=== PATIENT | male | born 1955 | race Caucasian/White ===

== ENCOUNTER → 2017-12-29 07:11 | Outpatient (CLI) | payer OTHER, SELFPAY ==
[2017-12-29 08:15] LABS: Hemoglobin A1C% w Est Avg Glu 6.4 % (4.0-6.0)
[2017-12-29 09:00] LABS: Alanine Aminotransferase 23 IU/L (21-72); Albumin 4.6 g/dL (3.5-5.0); Albumin Globulin Ratio 1.7 (1.0-2.8); Alkaline Phosphatase 39 U/L (38-126); Aspartate Aminotransferase 18 IU/L (17-59); BUN Creatinine Ratio 25.6 (6-22); Bilirubin Total 0.8 mg/dL (0.2-1.3); Blood Urea Nitrogen 23 mg/dL (9-20); Calcium 10.3 mg/dL (8.4-10.2); Carbon Dioxide 28 mmol/L (22-32); Chloride 103 mmol/L (98-107); Cholesterol 158 mg/dL (140-199); Estimated Glomerular Filt Rate > 60.0 mL/min (>60); Globulin 2.7 g/dL (1.7-4.1); Glucose 140 mg/dL (80-110); HDL Cholesterol 59 mg/dL (40-60); HEMOLYSIS < 15 (0-50); LDL Cholesterol Calculated 76 mg/dL (<100); Potassium 5.3 mmol/L (3.4-5.1); Sodium 143 mmol/L (137-145); Total Protein 7.3 g/dL (6.3-8.2); Triglycerides 116 mg/dL (35-150)
== END ==
PROVIDERS: PCP Internal Medicine; Visit Provider Internal Medicine
DX: E78.2 Mixed hyperlipidemia (principal); E11.9 Type 2 diabetes mellitus without complications
CPT/HCPCS: 36415; 80053; 80061; 83036

== ENCOUNTER → 2018-04-08 10:36 | Outpatient (CLI) | payer OTHER, SELFPAY ==
[2018-04-08 10:57] LABS: Hemoglobin A1C% w Est Avg Glu 7.8 % (4.0-6.0)
[2018-04-08 11:05] LABS: BUN Creatinine Ratio 18.9 (6-22); Blood Urea Nitrogen 17 mg/dL (9-20); Calcium 9.6 mg/dL (8.4-10.2); Carbon Dioxide 26 mmol/L (22-32); Chloride 103 mmol/L (98-107); Estimated Glomerular Filt Rate > 60.0 mL/min (>60); Glucose 192 mg/dL (80-110); HEMOLYSIS < 15 (0-50); Potassium 4.4 mmol/L (3.4-5.1); Sodium 141 mmol/L (137-145)
== END ==
PROVIDERS: PCP Internal Medicine; Visit Provider Internal Medicine
DX: E11.65 Type 2 diabetes mellitus with hyperglycemia (principal); E78.2 Mixed hyperlipidemia
CPT/HCPCS: 36415; 80048; 83036

== ENCOUNTER → 2018-07-01 07:38 | Outpatient (CLI) | payer OTHER, SELFPAY ==
[2018-07-01 08:26] LABS: Hemoglobin A1C% w Est Avg Glu 6.9 % (4.0-6.0)
[2018-07-01 08:33] LABS: Alanine Aminotransferase 38 IU/L (21-72); Albumin 4.4 g/dL (3.5-5.0); Albumin Globulin Ratio 1.5 (1.0-2.8); Alkaline Phosphatase 38 U/L (38-126); Aspartate Aminotransferase 23 IU/L (17-59); Bilirubin Total 0.8 mg/dL (0.2-1.3); Blood Urea Nitrogen 23 mg/dL (9-20); Calcium 9.7 mg/dL (8.4-10.2); Carbon Dioxide 23 mmol/L (22-32); Chloride 104 mmol/L (98-107); Cholesterol 137 mg/dL (140-199); Estimated Glomerular Filt Rate > 60.0 mL/min (>60); Globulin 2.9 g/dL (1.7-4.1); Glucose 141 mg/dL (80-110); HDL Cholesterol 54 mg/dL (40-60); HEMOLYSIS < 15 (0-50); LDL Cholesterol Calculated 64 mg/dL (<100); Potassium 4.4 mmol/L (3.4-5.1); Sodium 138 mmol/L (137-145); Total Protein 7.3 g/dL (6.3-8.2); Triglycerides 96 mg/dL (35-150)
== END ==
PROVIDERS: PCP Internal Medicine; Visit Provider Internal Medicine
DX: E11.65 Type 2 diabetes mellitus with hyperglycemia (principal); E29.1 Testicular hypofunction; E78.2 Mixed hyperlipidemia
CPT/HCPCS: 80053; 80061; 83036

== ENCOUNTER → 2018-10-06 06:46 | Outpatient (CLI) | payer OTHER, SELFPAY ==
[2018-10-06 08:11] LABS: Alanine Aminotransferase 19 IU/L (21-72); Albumin 4.5 g/dL (3.5-5.0); Albumin Globulin Ratio 1.6 (1.0-2.8); Alkaline Phosphatase 41 U/L (38-126); Aspartate Aminotransferase 21 IU/L (17-59); BUN Creatinine Ratio 25.6 (6-22); Bilirubin Total 0.8 mg/dL (0.2-1.3); Blood Urea Nitrogen 23 mg/dL (9-20); Calcium 9.5 mg/dL (8.4-10.2); Carbon Dioxide 25 mmol/L (22-32); Chloride 102 mmol/L (98-107); Estimated Glomerular Filt Rate > 60.0 mL/min (>60); Globulin 2.9 g/dL (1.7-4.1); Glucose 140 mg/dL (80-110); HEMOLYSIS < 15 (0-50); Potassium 4.6 mmol/L (3.4-5.1); Sodium 137 mmol/L (137-145); Total Protein 7.4 g/dL (6.3-8.2)
[2018-10-06 08:13] LABS: Hemoglobin A1C% w Est Avg Glu 6.6 % (4.0-6.0)
== END ==
PROVIDERS: PCP Internal Medicine; Visit Provider Internal Medicine
DX: E11.65 Type 2 diabetes mellitus with hyperglycemia (principal)
CPT/HCPCS: 36415; 80053; 83036

== ENCOUNTER → 2019-03-29 07:16 | Outpatient (CLI) | payer OTHER, SELFPAY ==
[2019-03-29 09:25] LABS: Alanine Aminotransferase 20 IU/L (<50); Albumin 4.6 g/dL (3.5-5.0); Albumin Globulin Ratio 1.8 (1.0-2.8); Alkaline Phosphatase 46 U/L (38-126); Aspartate Aminotransferase 19 IU/L (17-59); BUN Creatinine Ratio 24.4 (6-22); Blood Urea Nitrogen 22 mg/dL (9-20); Calcium 9.9 mg/dL (8.4-10.2); Carbon Dioxide 22 mmol/L (22-32); Chloride 105 mmol/L (98-107); Cholesterol 171 mg/dL (140-199); Estimated Glomerular Filt Rate > 60.0 mL/min (>60); Globulin 2.6 g/dL (1.7-4.1); Glucose 163 mg/dL (80-110); HDL Cholesterol 48 mg/dL (40-60); HEMOLYSIS < 15 (0-50); LDL Cholesterol Calculated 78 mg/dL (<100); Potassium 4.6 mmol/L (3.4-5.1); Sodium 138 mmol/L (137-145); Total Protein 7.2 g/dL (6.3-8.2); Triglycerides 223 mg/dL (35-150)
[2019-03-29 09:46] LABS: Prostate Specific Antigen Scrn 1.95 ng/mL (0.1-4.0)
== END ==
PROVIDERS: PCP Internal Medicine; Visit Provider Internal Medicine
DX: Z12.5 Encounter for screening for malignant neoplasm of prostate (principal); E11.9 Type 2 diabetes mellitus without complications; E78.2 Mixed hyperlipidemia
CPT/HCPCS: 36415; 80053; 80061; 83036; G0103

== ENCOUNTER → 2019-10-18 07:58 | Outpatient (CLI) | payer OTHER, SELFPAY ==
[2019-10-18 09:47] LABS: Hemoglobin A1C% w Est Avg Glu 8.2 % (4.0-6.0)
[2019-10-18 10:05] LABS: Alanine Aminotransferase 31 IU/L (<50); Albumin 4.4 g/dL (3.5-5.0); Albumin Globulin Ratio 1.7 (1.0-2.8); Alkaline Phosphatase 39 U/L (38-126); Aspartate Aminotransferase 25 IU/L (17-59); BUN Creatinine Ratio 22.5 (6-22); Bilirubin Total 0.8 mg/dL (0.2-1.3); Blood Urea Nitrogen 20 mg/dL (9-20); Carbon Dioxide 24 mmol/L (22-32); Chloride 105 mmol/L (98-107); Estimated Glomerular Filt Rate > 60.0 mL/min (>60); Globulin 2.6 g/dL (1.7-4.1); Glucose 175 mg/dL (80-110); HEMOLYSIS < 15 (0-50); Sodium 138 mmol/L (137-145)
== END ==
PROVIDERS: PCP Internal Medicine; Referring Provider Internal Medicine; Visit Provider Internal Medicine
DX: E11.9 Type 2 diabetes mellitus without complications (principal); E78.2 Mixed hyperlipidemia
CPT/HCPCS: 36415; 80053; 83036

== ENCOUNTER → 2020-01-23 08:06 | Outpatient (CLI) | payer OTHER, SELFPAY ==
[2020-01-23 10:05] LABS: Blood Urea Nitrogen 16 mg/dL (9-20); Calcium 9.3 mg/dL (8.4-10.2); Carbon Dioxide 23 mmol/L (22-32); Chloride 106 mmol/L (98-107); Estimated Glomerular Filt Rate > 60.0 mL/min (>60); Glucose 124 mg/dL (80-110); HEMOLYSIS < 15 (0-50); Potassium 4.2 mmol/L (3.4-5.1); Sodium 138 mmol/L (137-145)
[2020-01-23 10:53] LABS: Hemoglobin A1C% w Est Avg Glu 7.2 % (4.0-6.0)
== END ==
PROVIDERS: PCP Internal Medicine; Referring Provider Internal Medicine; Visit Provider Internal Medicine
DX: E11.65 Type 2 diabetes mellitus with hyperglycemia (principal)
CPT/HCPCS: 36415; 80048; 83036

== ENCOUNTER → 2020-06-14 10:27 | Outpatient (CLI) | payer OTHER, SELFPAY ==
[2020-06-14 13:07] LABS: Alanine Aminotransferase 32 IU/L (<50); Albumin 4.3 g/dL (3.5-5.0); Albumin Globulin Ratio 1.7 (1.0-2.8); Alkaline Phosphatase 40 U/L (38-126); Aspartate Aminotransferase 31 IU/L (17-59); BUN Creatinine Ratio 21.6 (6-22); Bilirubin Total 0.8 mg/dL (0.2-1.3); Blood Urea Nitrogen 19 mg/dL (9-20); Calcium 9.8 mg/dL (8.4-10.2); Carbon Dioxide 25 mmol/L (22-32); Chloride 104 mmol/L (98-107); Cholesterol 150 mg/dL (140-199); Estimated Glomerular Filt Rate > 60.0 mL/min (>60); Globulin 2.6 g/dL (1.7-4.1); Glucose 130 mg/dL (80-110); HDL Cholesterol 56 mg/dL (40-60); HEMOLYSIS < 15 (0-50); LDL Cholesterol Calculated 64 mg/dL (<100); Potassium 4.7 mmol/L (3.4-5.1); Sodium 136 mmol/L (137-145); Total Protein 6.9 g/dL (6.3-8.2); Triglycerides 150 mg/dL (35-150)
[2020-06-14 13:25] LABS: Hemoglobin A1C% w Est Avg Glu 7.4 % (4.0-6.0)
[2020-06-14 13:36] LABS: Prostate Specific Antigen Scrn 1.96 ng/mL (0.1-4.0)
== END ==
PROVIDERS: PCP Family Medicine; Referring Provider Internal Medicine; Visit Provider Internal Medicine
DX: E11.65 Type 2 diabetes mellitus with hyperglycemia (principal); Z12.5 Encounter for screening for malignant neoplasm of prostate; E78.2 Mixed hyperlipidemia
CPT/HCPCS: 36415; 80053; 80061; 83036; G0103

== ENCOUNTER 2020-07-14 17:42 | Emergency (ER) | payer OTHER, SELFPAY ==
[2020-07-14 17:47] VITALS: BP 190/90; PULSE 72; RESP 16; TEMP 36.6; O2SAT 99
--- NOTE | 2020-07-14 17:48 | DI.RAD.S_ITS ---
PROCEDURE: XR CHEST 1V INDICATIONS: chest pain TECHNIQUE: One view of the chest was acquired. COMPARISON: None. FINDINGS: Surgical changes and devices: None. Lungs and pleura: Lungs are clear. No pleural effusions or pneumothorax. Mediastinum: Mediastinal contours appear normal. Heart size is enlarged. Bones and chest wall: No suspicious bony lesions. Overlying soft tissues appear unremarkable. IMPRESSION: No acute cardiopulmonary pathology. Dictated by: See Ochoa M.D. on 07/14/2020 at 18:10 Approved by: See Ochoa M.D. on 07/14/2020 at 18:10
[2020-07-14 18:41] LABS: Add Manual Diff / Slide Review NO; Basophils Absolute Auto 100 /uL (0-100); Basophils Percent Auto 0.9 % (0-2); Eosinophils Absolute Auto 100 /uL (0-450); Eosinophils Percent Auto 1.7 % (2-4); Hematocrit 40.5 % (41-53); Hemoglobin 13.3 g/dL (13.5-17.5); Lymphocytes Absolute Auto 2100 /uL (1100-4500); Lymphocytes Percent Auto 29.1 % (25-40); Mean Corpuscular HGB Conc 32.9 % (30-36); Mean Corpuscular Hemoglobin 29.5 PG (26-34); Mean Corpuscular Volume 89.8 fL (80-100); Monocytes Absolute Auto 600 /uL (0-900); Monocytes Percent Auto 7.9 % (3-14); Neutrophils Absolute Auto 4300 /uL (1500-7000); Neutrophils Percent Auto 60.4 % (50-75); Platelet Count 206 X10^3/uL (150-400); Red Blood Cell Count 4.51 X10^6/uL (4.5-5.9); Red Cell Distribution Width 13.7 % (11.6-14.8); White Blood Cell Count 7.1 X10^3/uL (4.5-11.0)
[2020-07-14 18:48] LABS: INR 1.1 (0.9-1.3); Prothrombin Time 12.1 SECONDS (10.1-12.7)
[2020-07-14 18:50] LABS: PTT Partial Thromboplastin Tim 32 SECONDS (26.4-36.2)
[2020-07-14 18:52] LABS: Alanine Aminotransferase 26 IU/L (<50); Albumin 4.1 g/dL (3.5-5.0); Albumin Globulin Ratio 1.6 (1.0-2.8); Alkaline Phosphatase 37 U/L (38-126); Aspartate Aminotransferase 22 IU/L (17-59); Bilirubin Total 0.4 mg/dL (0.2-1.3); Blood Urea Nitrogen 19 mg/dL (9-20); Calcium 9.5 mg/dL (8.4-10.2); Carbon Dioxide 25 mmol/L (22-32); Chloride 103 mmol/L (98-107); Creatine Kinase 75 U/L (55-170); Estimated Glomerular Filt Rate > 60.0 mL/min (>60); Globulin 2.5 g/dL (1.7-4.1); Glucose 218 mg/dL (80-110); HEMOLYSIS < 15 (0-50); Lipase 170 U/L (23-300); Potassium 4.2 mmol/L (3.4-5.1); Sodium 137 mmol/L (137-145); Total Protein 6.6 g/dL (6.3-8.2)
[2020-07-14 18:57] VITALS: BP 161/73; PULSE 78; RESP 12; O2SAT 98
[2020-07-14 19:01] VITALS: BP 145/67
[2020-07-14 19:04] LABS: Troponin I < 0.012 ng/mL (0.01-0.034)
--- NOTE | 2020-07-14 19:05 | PC.NURSE ---
Report to [facility]
[2020-07-14 19:31] VITALS: BP 146/67
--- NOTE | 2020-07-14 19:50 | ED.GENADULT ---
HPI - General Adult <ITZEL Hawley - Last Filed: 07/14/20 21:00> General Chief complaint: Hypertension Stated complaint: elevated BP Time Seen by Provider: 07/14/20 17:56 Source: patient Mode of arrival: Ambulatory Limitations: no limitations History of Present Illness HPI narrative: This is a 64-year-old male former smoker, has past medical history significant for diabetes take several medications for this presents to ED with spouse with chief complain of asymptomatic elevated blood pressure and he has no known history of hypertension. Patient recently seen his primary care physician and had couple of diabetic medication changed from Januvia, Jardiance, Pioglitazone to glipizide and metformin on 06/28/2020. Patient had another appointment [address] Saavedra and noticed elevated blood pressure as 160/90 and he recommended to monitor BP at home. Patient checked his blood pressure today first-time and it read as in left arm 190/87 and right arm 180/90 without symptoms. When patient contacted on-call duty physician, he was recommended to come into ED for an evaluation. Related Data Previous Rx's Medication Instructions Recorded pioglitazone 30 mg tablet 30 mg PO QDAY #90 tab 01/17/20 simvastatin 40 mg tablet 40 mg PO QDAY #90 tab 01/17/20 metformin 1,000 mg tablet 1,000 mg PO BID #180 tab 01/25/20 tamsulosin 0.4 mg capsule 0.4 mg PO DAILY #90 cap 01/25/20 glipizide 10 mg tablet 10 mg PO BID #180 tab 05/03/20 Allergies Allergy/AdvReac Type Severity Reaction Status Date / Time No Known Drug Allergies Allergy Verified 07/12/20 08:33 Review of Systems <ITZEL Hawley - Last Filed: 07/14/20 21:00> Review of Systems Narrative: General: Denies fever, chills, fatigue, malaise, sweats. HEENT: Denies sinus pain, ear pain, sore throat, difficulty swallowing, dizziness. Respiratory: Denies dyspnea, cough, wheezing, hemoptysis, sputum. Cardiovascular: Denies chest pain, palpitations, orthopnea, edema. Gastrointestinal: Denies nausea, vomiting, abdominal pain, diarrhea, constipation, melena. : Denies dysuria, frequency, incontinence, hematuria, urinary retention. Musculoskeletal: Denies weakness, joint pain or bony pain. Skin: Denies rash, skin lesions, or other. Neurologic: Denies weakness, headache, numbness, change in speech, confusion, seizures, incoordination. Psychiatric: No concerning psychosocial issues. 12-point review of systems is negative except for those stated above. Patient History <ITZEL Hawley - Last Filed: 07/14/20 21:00> Medical History Ankle pain (~1978) Chicken pox Controlled type 2 diabetes mellitus without complication Diabetes mellitus (~2005) Elevated blood pressure reading without diagnosis of hypertension Fractures (~1978) History of adenomatous polyp of colon (09/24/16) Hyperlipidemia Hypogonadism in male Lipoma of torso (05/04/17) Low testosterone (~2012) Measles Mixed hyperlipidemia Ruptured tympanic membrane (~1962) Type 2 diabetes mellitus with hyperglycemia (06/18/15) Surgical History Anesthesia Colon polyps (~01/2014) Status post tonsillectomy and adenoidectomy (~1960) Family History Child Age: 39 TB (tuberculosis) Mother Age: 87 Breast cancer Hx of heart artery stent Heart disease Sister Age: 57 Family history of diabetes mellitus (DM) Type 2 diabetes mellitus Social History Smoking Status: Former smoker Smoking Status: Former smoker Exam <ITZEL Hawley - Last Filed: 07/14/20 21:00> Narrative Exam Narrative: GEN: Alert, oriented x 3, well appearing and nourished, and in no acute distress. Head: Normal cephalic, atraumatic. No scalp or temporal tenderness, palpable mass or rash. EYES: Pupils are equal, round, and reactive to light and accommodation. Extraocular muscles are intact bilaterally. There is no subconjunctival hemorrhage, exudate and sclera non-icteric. ENT: Hearing grossly intact. Airway patent. Neck: Trachea in midline. No JVD, non-tender without lymphadenopathy. No masses or thyroid megaly. Supple, non-tender and no meningeal signs. CARDIAC: Normal regular rate and rhythm without murmurs, gallops, or rubs. No chest wall tenderness. No peripheral edema, cyanosis or pallor. Capillary refill is less than 2 seconds. RESPIRATORY: Lungs are clear to auscultate bilaterally. No cough, wheezes, rales, or rhonchi. No stridor, respiratory distress, increase work of breathing, or accessary muscle used. ABD: Abdomen soft, nontender and non-distended. No guarding or rebound tenderness to palpate. Bowel sounds are normal in all 4 quadrants. There is no palpable masses or organomegaly. EXT: Full painless ROM of all extremities with no loss of sensation, strength, effusion or edema. SKIN: Warm, dry, normal color for patient. No erythema, lesions or rash over visible areas. BACK: Nontender without deformity or crepitance. No flank tenderness. NEUROLOGICAL: Alert and oriented to place, time and person. Sensation and motor function intact bilaterally. No facial droops, dysphasia. PSYCHIATRIC: Good judgement and reason, without hallucinations, abnormal affect or abnormal behaviors during the examination. Patient is not suicidal. Initial Vital Signs Initial Vital Signs: Vital Signs Temperature 97.8 F 07/14/20 17:47 Pulse Rate 72 07/14/20 17:47 Respiratory Rate 16 07/14/20 17:47 Blood Pressure 190/90 H 07/14/20 17:47 Pulse Oximetry 99 07/14/20 17:47 <Vernon Coyle DO - Last Filed: 07/14/20 23:46> Initial Vital Signs Initial Vital Signs: Vital Signs Temperature 97.8 F 07/14/20 17:47 Pulse Rate 72 07/14/20 17:47 Respiratory Rate 16 07/14/20 17:47 Blood Pressure 190/90 H 07/14/20 17:47 Pulse Oximetry 99 07/14/20 17:47 Scores <ITZEL Hawley - Last Filed: 07/14/20 21:00> GCS Sultana coma scale eye opening: Spontaneous Sultana coma scale verbal response: Orientated Sultana coma scale motor response: Obey commands Langston coma scale total score: 15 Course <ITZEL Hawley - Last Filed: 07/14/20 21:00> Orders Ordered: ED Orders 07/14/20 17:48 XR chest 1V Stat EKG-12 Lead Stat 07/14/20 18:30 Complete Blood Count AUTO DIFF Stat Comprehensive Metabolic Panel Stat Lipase Stat Partial Thromboplastin Time Stat Prothrombin Time INR Stat Troponin & CK Cardiac Panel Stat Vital Signs Vital signs: Vital Signs - 8 hr 07/14/20 17:47 07/14/20 18:57 07/14/20 19:01 Temperature 97.8 F Pulse Rate 72 78 Respiratory Rate 16 12 Blood Pressure 190/90 H 161/73 H 145/67 H Pulse Oximetry 99 98 07/14/20 19:31 Temperature Pulse Rate Respiratory Rate Blood Pressure 146/67 H Pulse Oximetry <Vernon Coyle DO - Last Filed: 07/14/20 23:46> Orders Ordered: ED Orders 07/14/20 17:48 XR chest 1V Stat EKG-12 Lead Stat 07/14/20 18:30 Complete Blood Count AUTO DIFF Stat Comprehensive Metabolic Panel Stat Lipase Stat Partial Thromboplastin Time Stat Prothrombin Time INR Stat Troponin & CK Cardiac Panel Stat Vital Signs Vital signs: Vital Signs - 8 hr 07/14/20 17:47 07/14/20 18:57 07/14/20 19:01 Temperature 97.8 F Pulse Rate 72 78 Respiratory Rate 16 12 Blood Pressure 190/90 H 161/73 H 145/67 H Pulse Oximetry 99 98 07/14/20 19:31 Temperature Pulse Rate Respiratory Rate Blood Pressure 146/67 H Pulse Oximetry Medical Decision Making <ITZEL Hawley - Last Filed: 07/14/20 21:00> Differential Diagnosis Differential Diagnosis: Hypertension, essential HTN Medical Records Medical records reviewed: Yes I reviewed the patient's medical records. Lab Data Lab results reviewed: Yes I reviewed the patient's lab results. Result diagrams: 07/14/20 18:30 07/14/20 18:30 Labs: Lab Results 07/14/20 07/14/20 07/14/20 Range/Units 18:30 18:30 18:30 WBC 7.1 (4.5-11.0) X10^3/uL RBC 4.51 (4.5-5.9) X10^6/uL Hgb 13.3 L (13.5-17.5) g/dL Hct 40.5 L (41-53) % MCV 89.8 (80-100) fL MCH 29.5 (26-34) PG MCHC 32.9 (30-36) % RDW 13.7 (11.6-14.8) % Plt Count 206 (150-400) X10^3/uL Neut % (Auto) 60.4 (50-75) % Lymph % (Auto) 29.1 (25-40) % [place] % (Auto) 7.9 (3-14) % Eos % (Auto) 1.7 L (2-4) % Baso % (Auto) 0.9 (0-2) % Neut # (Auto) 4300 (0204-6030) /uL Lymph # (Auto) 2100 (1440-4465) /uL [place] # (Auto) 600 (0-900) /uL Eos # (Auto) 100 (0-450) /uL Baso # (Auto) 100 (0-100) /uL PT 12.1 (10.1-12.7) SECONDS INR 1.1 (0.9-1.3) APTT 32 (26.4-36.2) SECONDS Sodium 137 (137-145) mmol/L Potassium 4.2 (3.4-5.1) mmol/L Chloride 103 (98-107) mmol/L Carbon Dioxide 25 (22-32) mmol/L BUN 19 (9-20) mg/dL Creatinine 1.00 (0.66-1.25) mg/dL Estimated GFR > 60.0 (>60) mL/min BUN/Creatinine Ratio 19.0 (6-22) Glucose 218 H (80-110) mg/dL Calcium 9.5 (8.4-10.2) mg/dL Total Bilirubin 0.4 (0.2-1.3) mg/dL AST 22 (17-59) IU/L ALT 26 (<50) IU/L Alkaline Phosphatase 37 L (38-126) U/L Total Creatine Kinase 75 (55-170) U/L CK-MB (CK-2) TNP CK-MB (CK-2) Rel Index TNP Troponin I < 0.012 (0.01-0.034) ng/mL Total Protein 6.6 (6.3-8.2) g/dL Albumin 4.1 (3.5-5.0) g/dL Globulin 2.5 (1.7-4.1) g/dL Albumin/Globulin Ratio 1.6 (1.0-2.8) Lipase 170 (23-300) U/L Imaging Data Chest x-ray: Radiologist's Impression: [address] [id number] ReportSigned Patient: Jabier Davey LMR#: [id number]: 4Acct:[id number]/Sex: 64 / MDate of Service: 07/14/20Loc: EDAccession Number: [id number] Procedure: XR chest 1V Ordering Provider: Daily Ferguson D.O. PROCEDURE: XR CHEST 1V INDICATIONS: chest pain TECHNIQUE: One view of the chest was acquired. COMPARISON: None. FINDINGS: Surgical changes and devices: None. Lungs and pleura: Lungs are clear. No pleural effusions or pneumothorax. Mediastinum: Mediastinal contours appear normal. Heart size is enlarged. Bones and chest wall: No suspicious bony lesions. Overlying soft tissues appear unremarkable. IMPRESSION: No acute cardiopulmonary pathology. Dictated by: See Ochoa M.D. on 07/14/2020 at 18:10 Approved by: See Ochoa M.D. on 07/14/2020 at 18:10 ECG Data Interpretation: Normal sinus rhythm Rate at 64 with right bundle-branch block. Left anterior fascicular block. Left dominant axis. IA interval 192, QRS duration, 176, QT/QTc 482/505 Septal infarct age undetermined MDM Narrative Medical decision making narrative: This is a 64-year-old male who presents to ED with asymptomatic hypertension. Recently at clinic noticed slightly elevated blood pressure and was recommended home BP monitoring. Patient has known history of type 2 diabetes and takes a few medication for this and had recent medications changes. Physical exam is unremarkable with normal neuro exam and cardiac exam. EKG showed NSR with RBBB and left anterior fascicular block with Q-waves in septal leads. Patient reports not knowing abnormal EKG in the past. Cardiac enzymes are negative. Normal kidney and liver function test. Chemistry unremarkable exceptElevated serum glucose of 218 mg/dL and states had not taken dinner dose for diabetes. Patient's BP monitored in ED which trended down to 146/67 before leaving ED. patient advised continue to monitor home BP twice a day around the same time at rest and during day when his active to keep track this to take it to next appointment with Dr. Saavedra. Return precautions discussed with patient and he verbalized understanding and in agreement with treatment plan. <Vernon Coyle DO - Last Filed: 07/14/20 23:46> Lab Data Labs: Lab Results 07/14/20 07/14/20 07/14/20 Range/Units 18:30 18:30 18:30 WBC 7.1 (4.5-11.0) X10^3/uL RBC 4.51 (4.5-5.9) X10^6/uL Hgb 13.3 L (13.5-17.5) g/dL Hct 40.5 L (41-53) % MCV 89.8 (80-100) fL MCH 29.5 (26-34) PG MCHC 32.9 (30-36) % RDW 13.7 (11.6-14.8) % Plt Count 206 (150-400) X10^3/uL Neut % (Auto) 60.4 (50-75) % Lymph % (Auto) 29.1 (25-40) % [place] % (Auto) 7.9 (3-14) % Eos % (Auto) 1.7 L (2-4) % Baso % (Auto) 0.9 (0-2) % Neut # (Auto) 4300 (0857-8864) /uL Lymph # (Auto) 2100 (2544-7836) /uL [place] # (Auto) 600 (0-900) /uL Eos # (Auto) 100 (0-450) /uL Baso # (Auto) 100 (0-100) /uL PT 12.1 (10.1-12.7) SECONDS INR 1.1 (0.9-1.3) APTT 32 (26.4-36.2) SECONDS Sodium 137 (137-145) mmol/L Potassium 4.2 (3.4-5.1) mmol/L Chloride 103 (98-107) mmol/L Carbon Dioxide 25 (22-32) mmol/L BUN 19 (9-20) mg/dL Creatinine 1.00 (0.66-1.25) mg/dL Estimated GFR > 60.0 (>60) mL/min BUN/Creatinine Ratio 19.0 (6-22) Glucose 218 H (80-110) mg/dL Calcium 9.5 (8.4-10.2) mg/dL Total Bilirubin 0.4 (0.2-1.3) mg/dL AST 22 (17-59) IU/L ALT 26 (<50) IU/L Alkaline Phosphatase 37 L (38-126) U/L Total Creatine Kinase 75 (55-170) U/L CK-MB (CK-2) TNP CK-MB (CK-2) Rel Index TNP Troponin I < 0.012 (0.01-0.034) ng/mL Total Protein 6.6 (6.3-8.2) g/dL Albumin 4.1 (3.5-5.0) g/dL Globulin 2.5 (1.7-4.1) g/dL Albumin/Globulin Ratio 1.6 (1.0-2.8) Lipase 170 (23-300) U/L Discharge Plan Departure Patient Disposition: Home Clinical Impression: Elevated blood pressure reading without diagnosis of hypertension Instructions: DI for High Blood Pressure Activity Restrictions/Additional Instructions: You have been diagnosed with [elevated blood pressure reading at home and ED. blood pressure improved to 146/67 before dc to home. EKG was sinus rhythm with right bundle-branch block. Labs were assuring including cardiac enzymes. Chest x-ray no acute findings.]. What to do: *Take your medications as directed. *Follow up with your primary care provider in 2-3 days, call for an appointment. Let them know you were seen in the ED and that we asked you to be seen in follow up. Please monitor your blood pressure twice a day around same time of the day until you are seen by her doctor and please track your blood pressure, once at rest and once during day when her active. *Return to ED if you have any new, worsening, or concerning symptoms, such as [chest pain, breathing difficulty, unable to tolerate fluids, lightheadedness, vision change, severe headache or any acute concerns]. Prescriptions: No Action simvastatin 40 mg tablet 40 mg PO QDAY Qty: 90 RF: 3 pioglitazone [Actos] 30 mg tablet 30 mg PO QDAY Qty: 90 RF: 3 tamsulosin 0.4 mg capsule 0.4 mg PO DAILY Qty: 90 RF: 3 metformin 1,000 mg tablet 1,000 mg PO BID Qty: 180 RF: 3 glipizide 10 mg tablet 10 mg PO BID Qty: 180 RF: 3 Referrals: Ruslan Saavedra DO [Primary Care Provider] - <Vernon Coyle DO - Last Filed: 07/14/20 23:46> Cosign ED Attending Florencia Attestation: I was immediately available in the department for consultation. This documentation has been reviewed and I agree with assessment and plan. Supervised by Vernon Coyle DO
== END 2020-07-14 20:04 | disposition home or self-care (01) ==
PROVIDERS: Emergency Medicine; Emergency Provider Nurse Practitioner Family; PCP Family Medicine
DX: R03.0 Elevated blood-pressure reading, without diagnosis of hypertension (principal); R07.9 Chest pain, unspecified
CPT/HCPCS: 36415; 71045; 80053; 82550; 83690; 84484; 85025; 85610; 85730; 93005; 93010; 99284

== ENCOUNTER → 2020-07-16 15:39 | Outpatient (CLI) | payer OTHER, SELFPAY ==
[2020-07-16 15:45] LABS: Bacteria Urine None Seen; WBC Urine None Seen (0-5/HPF)
[2020-07-16 16:40] LABS: Appearance Urine UA CLEAR; Bilirubin Urine UA NEGATIVE (NEGATIVE); Color Urine UA YELLOW; Glucose Urine UA 1+ g/dL (Negative); Ketones Urine UA NEGATIVE (NEGATIVE); Leukocyte Esterase Urine UA NEGATIVE (NEGATIVE); Nitrite Urine UA NEGATIVE (Negative); Occult Blood Urine UA NEGATIVE (Negative); Protein Urine UA NEGATIVE (Negative); Specific Gravity Urine UA 1.025 (1.000-1.035); Urobilinogen Urine UA 0.2 E.U./dL (0.2); pH Urine UA 5.5 (4.5-8.0)
[2020-07-16 16:53] LABS: Culture Indicated Urine Cult Not Indicated; RBC Urine 0-1/HPF (0-5/HPF)
[2020-07-16 17:06] LABS: Microalbumi Creatinin Ratio Ur 10.4 ug/mg CR (<30); Microalbumin Urine Random 1.3 mg/dL (0-1.6)
== END ==
PROVIDERS: PCP Family Medicine; Referring Provider Registered Nurse Diabetes Educator; Visit Provider Registered Nurse Diabetes Educator
DX: R03.0 Elevated blood-pressure reading, without diagnosis of hypertension (principal)
CPT/HCPCS: 81001; 82043; 82570

== ENCOUNTER → 2020-08-12 06:54 | Outpatient (CLI) | payer OTHER, SELFPAY ==
[2020-08-12 08:21] LABS: Hemoglobin A1C% w Est Avg Glu 7.7 % (4.0-6.0)
[2020-08-12 08:40] LABS: Alanine Aminotransferase 25 IU/L (<50); Albumin 4.3 g/dL (3.5-5.0); Albumin Globulin Ratio 1.7 (1.0-2.8); Alkaline Phosphatase 49 U/L (38-126); Aspartate Aminotransferase 22 IU/L (17-59); BUN Creatinine Ratio 18.4 (6-22); Bilirubin Total 0.5 mg/dL (0.2-1.3); Blood Urea Nitrogen 16 mg/dL (9-20); Carbon Dioxide 26 mmol/L (22-32); Chloride 102 mmol/L (98-107); Estimated Glomerular Filt Rate > 60.0 mL/min (>60); Globulin 2.6 g/dL (1.7-4.1); Glucose 175 mg/dL (80-110); HEMOLYSIS < 15 (0-50); Sodium 137 mmol/L (137-145); Total Protein 6.9 g/dL (6.3-8.2)
== END ==
PROVIDERS: PCP Family Medicine; Referring Provider Family Medicine; Visit Provider Family Medicine
DX: E11.9 Type 2 diabetes mellitus without complications (principal)
CPT/HCPCS: 36415; 80053; 83036

== ENCOUNTER → 2020-08-22 08:55 | Outpatient (CLI) | payer OTHER, SELFPAY ==
[2020-08-22 09:39] LABS: COVID19 -Nasal RAPID Negative (Negative)
== END ==
PROVIDERS: PCP Family Medicine; Visit Provider Specialist
DX: Z20.822 Contact with and (suspected) exposure to COVID-19 (principal)
CPT/HCPCS: 87635; C9803

== ENCOUNTER → 2020-08-23 08:53 | Day surgery (SDC) | payer OTHER, SELFPAY ==
[2020-08-23 09:34] VITALS: BP 154/77; PULSE 67; RESP 14; TEMP 36.3; O2SAT 97
[2020-08-23 09:36] VITALS: BMI 29.8
[2020-08-23] MEDS: LACTATED RINGERS 1,000 ML 42 ML IV (09:43)
--- NOTE | 2020-08-23 10:13 | PM.HP.1 ---
History of Present Illness History of Present Illness Date Patient Seen: 08/23/20 Time Patient Seen: 10:14 Chief complaint: SDC Narrative: Patient is a gentleman with a personal history of polyps. Apparently he was advised to have a repeat colonoscopy 3 years after his last. Is been 3 or 4 years. Last colonoscopy was done elsewhere. Patient History Medical History Ankle pain (~1978) Chicken pox Controlled type 2 diabetes mellitus without complication Diabetes mellitus (~2005) Fractures (~1978) History of adenomatous polyp of colon (09/24/16) Hyperlipidemia Hypertension Hypogonadism in male Lipoma of torso (05/04/17) Low testosterone (~2012) Measles Mixed hyperlipidemia Ruptured tympanic membrane (~1962) Type 2 diabetes mellitus with hyperglycemia (06/18/15) Surgical History Anesthesia Colon polyps (~01/2014) Status post tonsillectomy and adenoidectomy (~1960) Family & Social History Family History Child Age: 39 TB (tuberculosis) Mother Age: 87 Breast cancer Hx of heart artery stent Heart disease Sister Age: 57 Family history of diabetes mellitus (DM) Type 2 diabetes mellitus Social History: household members spouse Tobacco & Substance use: Smoking Status Former smoker alcohol intake frequency a few times a month Substance Use Type does not use Meds Home Medications and Allergies Home Medications Medication Instructions Recorded Confirmed Type pioglitazone 30 mg tablet 30 mg PO QDAY #90 tab 01/17/20 08/23/20 Rx simvastatin 40 mg tablet 40 mg PO QDAY #90 tab 01/17/20 08/23/20 Rx metformin 1,000 mg tablet 1,000 mg PO BID #180 tab 01/25/20 08/23/20 Rx glipizide 10 mg tablet 10 mg PO BID #180 tab 05/03/20 08/23/20 Rx lisinopril 20 mg tablet 20 mg PO DAILY #90 tab 08/15/20 08/23/20 Rx Calcium + D 500 mg PO DAILY 08/23/20 08/23/20 History Allergies Allergy/AdvReac Type Severity Reaction Status Date / Time No Known Drug Allergies Allergy Verified 08/15/20 11:24 Review of Systems Review of Systems ROS: Yes All systems reviewed with the patient and are negative except as otherwise documented Exam Vital Signs (past 8 hours): - 08/23/20 09:34 Temperature 97.3 F L Pulse Rate 67 Respiratory Rate 14 Blood Pressure 154/77 H Pulse Oximetry 97 Oxygen Delivery Method Room Air Narrative Exam Narrative: Pleasant cooperative patient no apparent distress. Lungs are clear to auscultation. No rales or rhonchi. Heart regular rate and rhythm no murmur gallop. Abdomen is soft nontender without mass. No obvious hernias. Patient is alert and oriented x3. Assessment & Plan Assessment & Plan narrative: The patient for a screening colonoscopy. I have discussed the procedure with them. Risks of bleeding, perforation which would necessitate major operation, failure to find remove all lesions, the potential tattoo were all discussed. All questions were answered. They wished to proceed.
--- NOTE | 2020-08-23 10:15 | PM.PREOP ---
Pre-operative Note COVID-19 COVID-19 status: Negative Result date/Date tested (Pos, Neg/Pending): 08/22/20 Interval Note History & Physical reviewed/Exam performed by Physician: Yes Changes to H&P: No ASA Class (for procedural sedation): II
== END | disposition home or self-care (01) ==
PROVIDERS: PCP Family Medicine; Referring Provider Specialist; Visit Provider Specialist
DX: Z12.11 Encounter for screening for malignant neoplasm of colon (principal); Z53.09 Procedure and treatment not carried out because of other contraindication
CPT/HCPCS: G0121

== ENCOUNTER 2020-08-24 08:02 | Day surgery (SDC) | payer OTHER, SELFPAY ==
--- NOTE | 2020-08-24 | PATH_ITS ---
[facility] Accession Number: [id number] . 01 Material submitted: . PART A: colon - POLYP ASCENDING COLON NEAR CECUM PART B: colon - POLYP @75CM PART C: colon - POLYP @45CM . 02 Diagnosis: A. Ascending Colon, Polyp Near Cecum, Biopsy: Tubular adenoma. . B. Colon, Polyp at 75 cm, Biopsy: Colonic mucosa with no significant diagnostic abnormality, consistent with polypoid redundancy. Additional levels were examined. Negative for dysplasia and malignancy. . C. Polyp at 45 cm, Biopsy: Hyperplastic polyp. MRV 08/30/2020 1438 Local . 02 Electronically signed: . Kelly Lizarraga MD, Pathologist NPI- [id number] . 01 Gross description: . Part A: POLYP ASCENDING COLON NEAR CECUM: Received in formalin are multiple fragment(s) of hays, soft tissue measuring 0.1 x 0.1 x 0.1 cm to 0.2 x 0.2 x 0.2 cm submitted entirely in 1 cassette(s) Part B: POLYP @75CM: Received in formalin is 1 fragment(s) of hays, soft tissue measuring 1.2 x 0.2 x 0.2 cm submitted entirely in 1 cassette(s) Part C: POLYP @45CM: Received in formalin are 3 fragment(s) of hays, soft tissue measuring 0.1 x 0.1 x 0.1 cm to 0.2 x 0.2 x 0.2 cm submitted entirely in 1 cassette(s) /MARIBETH 08/27/2020 194 Local . 02 Pathologist provided ICD-10: D12.2 . 02 CPT . 417069, 420035, 049715 Performed at: [address], [facility] [place] [id number] MD Malcolm Lockhart MD Phone: [phone] Performed at: 02 [facility] [id number] [place] [id number] MD Kelly Lizarraga MD Phone: [phone]
[2020-08-24] MEDS: LACTATED RINGERS 1,000 ML 200 ML IV (08:24)
[2020-08-24 08:25] VITALS: BP 154/86; PULSE 67; RESP 14; TEMP 36.3; O2SAT 96; BMI 29.9
--- NOTE | 2020-08-24 08:49 | SUR.OPER ---
GLASSES TO PACU IN LABELED BAG.
[2020-08-24] MEDS: fentaNYL 250 MCG/5 ML INJ IV (09:00)
[2020-08-24] MEDS: MIDAZOLAM 5 MG/5 ML VIAL IV (09:00)
--- NOTE | 2020-08-24 09:23 | PM.OP.ENDO ---
Operative Date/Time/Diagnoses Date of procedure: 08/24/20 Time of procedure: 09:23 Pre-op diagnosis: Screening examination. Post-op diagnosis: same (Small polyp like lesions removed. One flat lesion near the cecum biopsied. May not be a polyp.) Procedure & Clinicians Study performed: Colonoscopy with cold biopsy. Same procedure as scheduled: Yes Indications: Screening Procedure Notes SCOAP/Timeout: Performed Procedure in detail: The patient was placed in the left lateral decubitus position and underwent IV sedation directed by the surgeon consisting of fentanyl and Versed. Digital exam was unremarkable. I could only feel the back portion of the prostate but it felt flat.. The scope was inserted and advanced through the rectum into the sigmoid, descending, transverse, and ascending colon. No lesions were seen. The cecum was reached identified by the ileocecal valve and the appendiceal opening. The scope was gradually brought out. Just beyond the cecum on a fold of the same side as the ileocecal valve there was a an irregular mucosal area. I could not tell if this was a flat polyp or just a variation in normal mucosa. I chose to repeatedly biopsy and remove the area. Very small lesions were seen at 75 and 45 cm from the anal verge. These were biopsied and removed. No other Polyps were found. The scope ultimately was retroflexed in the rectum. The appearance was remarkable for hemorrhoidal disease. No ulcers were seen.. The scope was removed and the patient tolerated the procedure well. Scope withdrawal time: 10 minutes(21 total) Sedation minutes: 36 Findings: polyp Specimen(s): other (Biopsied lesions.) Complications: none Post-procedure Recommendations: Colonscopy in 5 years (If the lesion near the cecum is adenomatous the patient should have a repeat colonoscopy in 1 year to make sure nothing has grown back in that spot.) Follow up: as needed Disposition: PACU
[2020-08-24 09:27] VITALS: BP 132/60; PULSE 61; RESP 11; TEMP 37.1; O2SAT 99
[2020-08-24 09:31] VITALS: BP 131/56; PULSE 55; RESP 11; O2SAT 98
[2020-08-24 09:36] VITALS: BP 129/61; PULSE 54; RESP 12; O2SAT 99
[2020-08-24 09:41] VITALS: BP 139/71; PULSE 64; RESP 14; O2SAT 99
[2020-08-24 09:44] VITALS: BP 145/76; PULSE 62; RESP 14; TEMP 36.6; O2SAT 97
== END 2020-08-24 09:49 | disposition home or self-care (01) ==
PROVIDERS: PCP Family Medicine; Referring Provider Specialist; Visit Provider Specialist
PROC: 0DJD8ZZ Inspection of Lower Intestinal Tract, Via Natural or Artificial Opening Endoscopic (ICD-10-PCS; CPT 45378; principal; 2020-08-24 09:15)
DX: Z12.11 Encounter for screening for malignant neoplasm of colon (principal); Z86.010 Personal history of colon polyps; E11.9 Type 2 diabetes mellitus without complications; E78.5 Hyperlipidemia, unspecified; I10 Essential (primary) hypertension; Z79.84 Long term (current) use of oral hypoglycemic drugs; D12.2 Benign neoplasm of ascending colon
CPT/HCPCS: 45380; 82962; 99152; 99153; J2250; J3010

== ENCOUNTER → 2020-11-08 07:17 | Outpatient (CLI) | payer OTHER, SELFPAY ==
[2020-11-08 09:01] LABS: Hemoglobin A1C% w Est Avg Glu 7.5 % (4.0-6.0)
== END ==
PROVIDERS: PCP Family Medicine; Referring Provider Family Medicine; Visit Provider Family Medicine
DX: E11.9 Type 2 diabetes mellitus without complications (principal)
CPT/HCPCS: 36415; 83036

== ENCOUNTER → 2021-04-02 07:24 | Outpatient (CLI) | payer OTHER, SELFPAY ==
[2021-04-02 08:59] LABS: Hemoglobin A1C% w Est Avg Glu 8.2 % (4.0-6.0)
[2021-04-02 09:00] LABS: BUN Creatinine Ratio 20.7 (6-22); Blood Urea Nitrogen 18 mg/dL (9-20); Calcium 9.9 mg/dL (8.4-10.2); Carbon Dioxide 25 mmol/L (22-32); Chloride 102 mmol/L (98-107); Estimated Glomerular Filt Rate > 60.0 mL/min (>60); Glucose 205 mg/dL (80-110); HEMOLYSIS < 15 (0-50); Potassium 4.8 mmol/L (3.4-5.1); Sodium 136 mmol/L (137-145)
== END ==
PROVIDERS: PCP Family Medicine; Referring Provider Family Medicine; Visit Provider Family Medicine
DX: E11.9 Type 2 diabetes mellitus without complications (principal); R03.0 Elevated blood-pressure reading, without diagnosis of hypertension
CPT/HCPCS: 36415; 80048; 83036

== ENCOUNTER → 2021-07-07 07:52 | Outpatient (CLI) | payer OTHER, SELFPAY ==
[2021-07-07 09:12] LABS: Hemoglobin A1C% w Est Avg Glu 9.7 % (4.0-6.0)
[2021-07-07 09:42] LABS: Cholesterol 241 mg/dL (140-199); HDL Cholesterol 44 mg/dL (40-60); LDL Cholesterol Calculated 134 mg/dL (<100); Triglycerides 313 mg/dL (35-150)
== END ==
PROVIDERS: PCP Family Medicine; Referring Provider Family Medicine; Visit Provider Family Medicine
DX: E11.9 Type 2 diabetes mellitus without complications (principal); E78.2 Mixed hyperlipidemia; I10 Essential (primary) hypertension
CPT/HCPCS: 36415; 80061; 83036

== ENCOUNTER → 2021-09-17 07:59 | Outpatient (CLI) | payer OTHER, SELFPAY ==
[2021-09-17 09:13] LABS: Hemoglobin A1C% w Est Avg Glu 8.8 % (4.0-6.0)
[2021-09-17 09:27] LABS: Cholesterol 145 mg/dL (140-199); HDL Cholesterol 50 mg/dL (40-60); LDL Cholesterol Calculated 58 mg/dL (<100); Triglycerides 183 mg/dL (35-150)
== END ==
PROVIDERS: PCP Family Medicine; Referring Provider Family Medicine; Visit Provider Family Medicine
DX: E11.65 Type 2 diabetes mellitus with hyperglycemia (principal); E78.2 Mixed hyperlipidemia
CPT/HCPCS: 36415; 80061; 83036